=== PATIENT | female | born 1995 | race Hispanic/Latino ===

== ENCOUNTER 2021-06-22 02:54 | Emergency (ER) | payer SELFPAY ==
[2021-06-22] MEDS ORDERED: SODIUM CHLORIDE 0.9% 1000 ML 1,000 ML IV ONE (03:03)
[2021-06-22] MEDS ORDERED: ONDANSETRON 4 MG/2 ML INJ IV ONE ×2 (03:03→04:30)
--- NOTE | 2021-06-22 03:21 | Emergency Department Report ---
ED Abdominal Pain HPI - General Chief Complaint: Abdominal Pain Stated Complaint: VOMITING,LEGS NUMB,ULCER FLARE UP Time Seen by Provider: 06/22/21 03:16 Source: patient Mode of arrival: Ambulatory Limitations: No Limitations - History of Present Illness Initial Comments: Patient is a 26-year-old female with history of gastric ulcer who presents for left flank pain dysuria frequency and urgency x3 days. Patient denies fevers or chills. There is nausea vomiting that started today. Pain is described as 7 sharp achy radiating from left flank to suprapubic. Pain is exacerbated by voiding. Patient denies history of renal stones however. There is no hematuria but there is dysuria frequency and urgency. Patient advises she takes [id number] Prevacid, no other medicines. No history of gallstones no history of IBS no history of Crohn's. MD Complaint: flank pain Severity scale (0 -10): 10 - Related Data Previous Rx's Medication Instructions Recorded Last Taken Type Acetaminophen [Acetaminophen TAB] 1,000 mg PO Q6HR PRN #30 tablet 06/22/21 Unknown Rx Famotidine [Pepcid] 20 mg PO BID #30 tablet 06/22/21 Unknown Rx Ondansetron [Zofran Odt] 4 mg PO Q8HR PRN #12 tab.rapdis 06/22/21 Unknown Rx Allergies Allergy/AdvReac Type Severity Reaction Status Date / Time No Known Allergies Allergy Verified 06/22/21 05:06 ED Review of Systems ROS: Stated complaint: VOMITING,LEGS NUMB,ULCER FLARE UP Other details as noted in HPI Constitutional: denies: chills, fever Eyes: denies: eye pain, eye discharge, vision change ENT: denies: ear pain, throat pain Respiratory: denies: cough, shortness of breath, wheezing Cardiovascular: denies: chest pain, palpitations Endocrine: no symptoms reported Gastrointestinal: abdominal pain, nausea, vomiting. denies: diarrhea, constipation, melena Genitourinary: urgency, dysuria, frequency. denies: hematuria, discharge Musculoskeletal: back pain (L flank pain) Skin: denies: rash, lesions Neurological: denies: headache, weakness, paresthesias Psychiatric: denies: anxiety, depression Hematological/Lymphatic: denies: easy bleeding, easy bruising ED Past Medical Hx - Past Medical History Previous Medical History?: No - Surgical History Past Surgical History?: No - Medications Home Medications: Home Medications Medication Instructions Recorded Confirmed Last Taken Type Acetaminophen [Acetaminophen TAB] 1,000 mg PO Q6HR PRN #30 tablet 06/22/21 Unknown Rx Famotidine [Pepcid] 20 mg PO BID #30 tablet 06/22/21 Unknown Rx Ondansetron [Zofran Odt] 4 mg PO Q8HR PRN #12 tab.rapdis 06/22/21 Unknown Rx ED Physical Exam - General Limitations: No Limitations General appearance: alert, in no apparent distress - Head Head exam: Present: normocephalic, normal inspection - Eye Eye exam: Present: normal appearance, EOMI Pupils: Present: normal accommodation - ENT ENT exam: Present: mucous membranes moist - Neck Neck exam: Present: normal inspection, full ROM. Absent: tenderness - Respiratory Respiratory exam: Present: normal lung sounds bilaterally. Absent: respiratory distress, wheezes, stridor, chest wall tenderness - Cardiovascular Cardiovascular Exam: Present: regular rate, normal rhythm, irregular rhythm, normal heart sounds. Absent: systolic murmur, diastolic murmur, rubs, gallop - GI/Abdominal GI/Abdominal exam: Present: soft, normal bowel sounds. Absent: distended, tenderness, guarding, rebound, rigid, bruit, hernia - Rectal Rectal exam: Present: deferred - Extremities Exam Extremities exam: Present: normal inspection, full ROM. Absent: tenderness - Back Exam Back exam: Present: normal inspection, CVA tenderness (L). Absent: tenderness - Neurological Exam Neurological exam: Present: alert, oriented X3, CN II-XII intact, normal gait - Psychiatric Psychiatric exam: Present: normal affect, normal mood - Skin Skin exam: Present: warm, dry, intact, normal color. Absent: rash, erythema, ecchymosis ED Course Vital Signs 06/22/21 02:58 Temperature 97.9 F Pulse Rate 101 H Respiratory 20 Rate Blood Pressure 128/69 [Left] O2 Sat by Pulse 100 Oximetry ED Medical Decision Making - Lab Data Result diagrams: 06/22/21 03:51 06/22/21 03:51 Labs 06/22/21 06/22/21 06/22/21 03:51 03:51 04:01 WBC 16.0 H RBC 4.96 Hgb 14.5 H Hct 43.9 H MCV 89 MCH 29 MCHC 33 RDW 13.7 Plt Count 318 Lymph % (Auto) 9.5 L [place] % (Auto) 7.0 Eos % (Auto) 0.0 Baso % (Auto) 0.6 Lymph # (Auto) 1.5 Gonzales # (Auto) 1.1 H Eos # (Auto) 0.0 Baso # (Auto) 0.1 Seg Neutrophils % 82.9 H Seg Neutrophils # 13.3 H Sodium 148 H Potassium 3.5 L Chloride 105.4 Carbon Dioxide 23 Anion Gap 23 BUN 18 H Creatinine 0.9 Estimated GFR > 60 BUN/Creatinine Ratio 20 Glucose 122 H Calcium 9.7 Total Bilirubin 0.60 AST 15 ALT 16 Alkaline Phosphatase 79 Total Protein 7.5 Albumin 4.5 Albumin/Globulin Ratio 1.5 Lipase 10 L Urine Color [place] Urine Turbidity Hazy Urine pH 5.0 Ur Specific [place] 1.031 H Urine Protein >500 Urine Glucose (UA) 50 Urine Ketones 20 Urine Blood Sm Urine Nitrite Neg Ur Reducing Substances Not Reportable Urine Bilirubin Sm Urine Ictotest Negative Urine Urobilinogen 2.0 Ur Leukocyte Esterase Neg Urine WBC (Auto) 37.0 H Urine RBC (Auto) 5.0 U Epithel Cells (Auto) 17.0 H Urine Mucus 3+ Urine HCG, Qual Negative - Radiology Data Radiology results: report reviewed, image reviewed HEST PA AND LATERAL VIEWS INDICATION: cough fever pain. COMPARISON: 12/16/2020 FINDINGS: Support devices: None. Heart: Within normal limits. Lungs/Pleura: No acute pulmonary or pleural findings. IMPRESSION: 1. No acute findings. Signer Name: Quincy Cotton MD Signed: 06/22/2021 4:51 AM Workstation Name: [id number] - Medical Decision Making Symptoms are improved, patient is tolerating p.o. intake at this time. UA no nitrites no leukocytes, CT abdomen and pelvis no abnormality noted. Abdominal pain is resolved plan refill PPI, follow-up with GI, follow-up with primary care doctor. Patient will return to ED should symptoms worsen. Is agreement and understanding with same patient will be DC'd home in stable condition at this time. Patient is currently tolerating p.o. intake without nausea or vomiting Critical care attestation.: If time is entered above; I have spent that time in minutes in the direct care of this critically ill patient, excluding procedure time. ED Disposition Clinical Impression: Abdominal pain Qualifiers: Abdominal location: generalized Qualified Code(s): R10.84 - Generalized abdominal pain Disposition: 01 HOME / SELF CARE / HOMELESS Is pt being admited?: No Does the pt Need Aspirin: No Condition: Stable Instructions: Abdominal Pain (ED), Flank Pain, Adult, [id number], Abdominal Pain, Adult, [id number] Additional Instructions: Take medications as prescribed, follow-up with GI doctor as directed. Hydrate as directed, return to emergency department should symptoms worsen. Prescriptions: Acetaminophen [Acetaminophen TAB] 1,000 mg PO Q6HR PRN #30 tablet PRN Reason: pain Famotidine [Pepcid] 20 mg PO BID #30 tablet Ondansetron [Zofran Odt] 4 mg PO Q8HR PRN #12 tab.rapdis PRN Reason: Nausea And Vomiting Referrals: [facility] [Provider Group] - 3-5 Days Forms: Work/School Release Form(ED) Time of Disposition: 06:09
[2021-06-22 04:12] LABS: Basophils # (Auto) 0.1 K/mm3 (0.0-0.1); Basophils % (Auto) 0.6 % (0.0-1.8); Hematocrit 43.9 % (30.3-42.9); Hemoglobin 14.5 gm/dl (10.1-14.3); Lymphocytes # (Auto) 1.5 K/mm3 (1.2-5.4); Lymphocytes % (Auto) 9.5 % (13.4-35.0); Mean Corpuscular HGB Conc 33 % (30-34); Mean Corpuscular Volume 89 fl (79-97); Monocytes # (Auto) 1.1 K/mm3 (0.0-0.8); Platelet Count 318 K/mm3 (140-440); Red Blood Count 4.96 M/mm3 (3.65-5.03); Red Cell Distribution Width 13.7 % (13.2-15.2)
[2021-06-22 04:13] LABS: HCG Qualitative,Urine Negative (Negative)
[2021-06-22 04:17] LABS: Bilirubin,Urine SM (Negative); Blood,Urine SM (Negative); Color,Urine Amber (Yellow); Mucus,Urine 3+ /HPF
[2021-06-22 04:19] LABS: Ictotest,Urine Negative (Negative); Protein,Urine >500 mg/dL (Negative)
[2021-06-22] MEDS ORDERED: MORPHINE 2 MG/1 ML INJ IV ONE (04:30)
[2021-06-22 04:38] LABS: Alanine Aminotransferase 16 units/L (7-56); Albumin 4.5 g/dL (3.9-5); BUN/Creatinine Ratio 20; Blood Urea Nitrogen 18 mg/dL (7-17); Calcium 9.7 mg/dL (8.4-10.2); Hemolysis Index 11
[2021-06-22] MEDS ORDERED: LIDOCAINE VISCOUS 2% 15 ML ORAL LIQD PO ONE ×2 (04:38→05:42)
[2021-06-22] MEDS ORDERED: ALUM-MAG HYDROXIDE-SIMETHICONE 200-200-20MG/5ML ORAL LIQD 30 ML PO ONE ×2 (04:38→05:42)
--- NOTE | 2021-06-22 05:26 | Cat Scan Report ---
CT ABDOMEN AND PELVIS WITHOUT IV CONTRAST INDICATION: Patient complains of flank pain with N/V. Possible Pyelonephritis. COMPARISON: None available. TECHNIQUE: All CT scans at this facility use dose modulation, automated exposure control, iterative reconstructi on or weight based dosing, when appropriate, to reduce radiation dose to as low as reasonably achieva ble. FINDINGS: Lung Bases: No significant abnormality. Skeletal System: No acute abnormality. ABDOMEN: Liver: No significant abnormality. Gallbladder: Removed. Bile Ducts: No significant abnormality. Adrenals: No significant abnormality. Right Kidney: No significant abnormality. Left Kidney: No significant abnormality. Pancreas: No significant abnormality. Spleen: No significant abnormality. Upper GI tract: No significant abnormality. Lymph Nodes: No significant adenopathy. Aorta: No significant abnormality. Additional Findings: No significant abnormality. PELVIS: Colon: No acute abnormality. Urinary Bladder and Distal Ureters: No significant abnormality. Appendix: No significant abnormality. Lymph Nodes: No significant adenopathy. Additional Findings: None. IMPRESSION: 1. Within the limitations of non contrast technique, no acute process in the abdomen or pelvis. Signer Name: Quincy Cotton MD Signed: 06/22/2021 5:22 AM Workstation Name: [email or web address]
[2021-06-22 06:36] VITALS: BP 122/54
== END 2021-06-22 06:25 | disposition home or self-care (01) ==
LOC: ED 02:54
DX: R10.84 Generalized abdominal pain (principal); R30.0 Dysuria; R39.15 Urgency of urination; Z79.899 Other long term (current) drug therapy
CPT/HCPCS: 36415; 74176; 80053; 81001; 81025; 83690; 85025; 87086; 96361; 96374; 96375; 96376; 99284; J2270; J2405; J7030

== ENCOUNTER 2021-09-11 20:49 | Emergency (ER) | payer SELFPAY | END 2021-09-12 05:41 | LOC: ED 20:49 | DX: R10.9 Unspecified abdominal pain (principal); Z53.21 Procedure and treatment not carried out due to patient leaving prior to being seen by health care provider ==

== ENCOUNTER 2021-09-15 15:12 | Emergency (ER) | payer SELFPAY | END 2021-09-15 15:15 | disposition left against medical advice (07) | LOC: ED 15:12 | DX: R55 Syncope and collapse (principal); Z53.21 Procedure and treatment not carried out due to patient leaving prior to being seen by health care provider ==